=== PATIENT | male | born 1990 | race Hispanic/Latino ===

== ENCOUNTER 2017-04-01 16:46 | Emergency (ER) | payer MEDICAID ==
[2017-04-01 16:53] VITALS: RESP 18; O2SAT 98
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
--- NOTE | 2017-04-01 18:50 | CT ---
PROCEDURE: CT HEAD WITHOUT CONTRAST. HISTORY: Head injury 1 year ago, headache with vision loss COMPARISON: Images from noncontrast head CT performed 10/11/11 TECHNIQUE: Axial computed tomography images were obtained through the head/brain without intravenous contrast. Radiation dose: Total exam DLP = not available This CT exam was performed using one or more of the following dose reduction techniques: Automated exposure control, adjustment of the mA and/or kV according to patient size, and/or use of iterative reconstruction technique. FINDINGS: HEMORRHAGE: No intracranial hemorrhage. BRAIN: No mass effect or edema. No atrophy or chronic microvascular ischemic changes.Please note that MRI with diffusion imaging is more sensitive in the detection of acute ischemic event. VENTRICLES: No hydrocephalus. CALVARIUM: Unremarkable. PARANASAL SINUSES: Unremarkable as visualized. No significant inflammatory changes. MASTOID AIR CELLS: Unremarkable as visualized. No inflammatory changes. OTHER FINDINGS: None. IMPRESSION: No acute intracranial pathology identified.
[2017-04-01 19:20] VITALS: BP 105/53; PULSE 66; TEMP 97.9
== END 2017-04-01 19:25 | disposition home or self-care (01) ==
LOC: C.ER 16:46
DX: F07.81 Postconcussional syndrome (principal); G44.309 Post-traumatic headache, unspecified, not intractable

== ENCOUNTER 2017-05-03 02:59 | Emergency (ER) | payer MEDICAID ==
[2017-05-03 03:08] VITALS: TEMP 98; O2SAT 99
[2017-05-03] MEDS ORDERED: Amoxicillin-Clav 875-125 mg Tab PO STA (04:02)
[2017-05-03] MEDS ORDERED: Oxycodone/Acetaminophen 5/325 mg Tab PO STA (04:03)
--- NOTE | 2017-05-03 04:09 | C.PDOC ---
History Of Present Illness 26 year old male who presents to the ER with a complaint of a headache and bleeding from the left ear since yesterday. Patient was seen on 04/01/17 for a complaint of a headache, at the time he had a head CT done that was negative. Patient reports he washed out his left ear with alcohol to clean the blood; denies rash, throat pain, or vomiting. Time Seen by Provider: 05/03/17 03:15 Chief Complaint (Nursing): Headache History Per: Patient History/Exam Limitations: no limitations Onset/Duration Of Symptoms: Days Current Symptoms Are (Timing): Still Present Preceeding Symptoms: None Associated Symptoms: denies: Nausea, Vomiting Recent travel outside of the [place]: No Past Medical History Reviewed: Historical Data, Nursing Documentation, Vital Signs Vital Signs: Last Vital Signs Temp 98 F 05/03/17 03:06 Pulse 100 H 05/03/17 03:06 Resp 20 05/03/17 03:06 BP 138/80 05/03/17 03:06 Pulse Ox 99 05/03/17 04:17 - Medical History PMH: Asthma, Migraine Surgical History: No Surg Hx Family History: States: Unknown Family Hx - Social History Hx Tobacco Use: Yes Hx Alcohol Use: No Hx Substance Use: No - Immunization History Hx Tetanus Toxoid Vaccination: No Hx Influenza Vaccination: No Hx Pneumococcal Vaccination: No Review Of Systems ENT: Positive for: Ear Pain. Negative for: Throat Pain Gastrointestinal: Negative for: Vomiting Skin: Negative for: Rash Neurological: Positive for: Headache Physical Exam - Physical Exam Appears: Non-toxic, No Acute Distress Skin: Normal Color, Warm, Dry Head: Atraumatic, Normacephalic Ear(s): Left: Other (Blood in ear canal. Pain with pulling on pinna), Right: Normal Oral Mucosa: Moist Throat: Normal, No Erythema, No Exudate Neck: Normal, Supple Neurological/Psych: Oriented x3, Normal Speech, Normal Cognition ED Course And Treatment O2 Sat by Pulse Oximetry: 99 (Room air) Pulse Ox Interpretation: Normal Medical Decision Making Medical Decision Making: Plan: * Amoxicillin * Percocet Prior records reviewed, patient was seen on 04/01/[address] Coles for a complaint of headache and blurred vision. Disposition - Disposition Referrals: Heron Scanlon MD [Staff Provider] - Disposition: HOME/ ROUTINE Disposition Time: 05:20 Condition: GOOD Additional Instructions: Follow up with the ENT doctor within 1-2 days, Return if worsened. Prescriptions: Amoxicillin/Clavulanate [Augmentin 875 MG-125 MG] 1 tab PO BID #14 tab traMADol [Ultram] 50 mg PO Q6 PRN #20 tab PRN Reason: Pain Instructions: Otitis Externa (ED), Ruptured Eardrum (ED) Forms: [facility] (Mozambican) - Clinical Impression Clinical Impression: Otitis externa - Scribe Statement The provider has reviewed the documentation as recorded by the Scribzack Jim All medical record entries made by the Jaminibzack were at my direction and personally dictated by me. I have reviewed the chart and agree that the record accurately reflects my personal performance of the history, physical exam, medical decision making, and the department course for this patient. I have also personally directed, reviewed, and agree with the discharge instructions and disposition.
[2017-05-03] MEDS ORDERED: Oxycodone/Acetaminophen 5/325 mg Tab ONE (04:20)
[2017-05-03] MEDS ORDERED: Amoxicillin-Clav 875-125 mg Tab PO ONE (04:20)
[2017-05-03 05:27] VITALS: BP 120/80; PULSE 80; RESP 14
== END 2017-05-03 05:27 | disposition home or self-care (01) ==
LOC: C.ER 02:59
DX: H60.92 Unspecified otitis externa, left ear (principal)

== ENCOUNTER 2017-09-17 19:08 | Emergency (ER) | payer MEDICAID ==
[2017-09-17 19:57] VITALS: BP 120/70; PULSE 80; TEMP 98; O2SAT 96
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
[2017-09-17 21:32] VITALS: RESP 20
--- NOTE | 2017-09-18 08:24 | RAD ---
PROCEDURE: Revision left knee dated 09/17/2017. HISTORY: Pain. COMPARISON: None. FINDINGS: BONES: Current study reveals no evidence of acute displaced fracture nor dislocation. The osseous structures intact. Joint spaces preserved. JOINTS: Joint effusion Joint spaces preserved. No significant osteoarthritis. JOINT EFFUSION: No significant OTHER FINDINGS: None. IMPRESSION: No evidence of acute displaced fracture nor dislocation. If symptoms persist or occult fracture suspected clinically consider CT scan if further evaluation is required.
== END 2017-09-17 21:32 | disposition home or self-care (01) ==
LOC: C.ER 19:08
DX: S80.02XA Contusion of left knee, initial encounter (principal); V09.3XXA Pedestrian injured in unspecified traffic accident, initial encounter

== ENCOUNTER 2017-12-16 01:04 | Emergency (ER) | payer MEDICAID ==
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
[2017-12-16] MEDS ORDERED: Sodium Chloride 0.9% 1,000 ML IV ONE (02:05)
[2017-12-16] MEDS ORDERED: Sodium Chloride 0.9% 1,000 ML ONE (02:10)
[2017-12-16 03:10] VITALS: BP 120/71; PULSE 67; RESP 18; TEMP 98.2
[2017-12-19 17:49] VITALS: O2SAT 99
== END 2017-12-16 03:12 | disposition home or self-care (01) ==
LOC: C.ER 01:04
DX: R51 Headache (principal); Z72.0 Tobacco use
CPT/HCPCS: 96361; 96374; 99285; J2765; J7040

== ENCOUNTER 2018-04-16 19:12 | Emergency (ER) | payer MEDICAID ==
[2018-04-16 20:01] LABS: BASO # 0.1 K/uL (0.0-0.2); BASO % 0.7 % (0.0-2.0); EOS # 0.1 K/uL (0.0-0.7); EOS % 1.2 % (0.0-4.0); HEMOGLOBIN 14.4 g/dL (12.0-18.0); LYMPH # 2.4 K/uL (1.0-4.3); LYMPH % 26.6 % (20.0-40.0); MEAN CELL VOLUME 83.7 fL (80.0-94.0); MEAN CORPUSCULAR HEMOGLOBIN 29.5 pg (27.0-31.0); MEAN CORPUSCULAR HGB CONC 35.3 g/dL (33.0-37.0); MEAN PLATELET VOLUME 7.4 fL (7.2-11.7); MONO # 0.7 K/uL (0.0-0.8); MONO % 8.1 % (0.0-10.0); NEUT # 5.7 K/uL (1.8-7.0); NEUT % 63.4 % (50.0-75.0); RBC 4.88 Mil/uL (4.40-5.90); RED CELL DISTRIBUTION WIDTH 12.8 % (11.5-14.5)
--- NOTE | 2018-04-16 20:08 | C.PDOC ---
History Of Present Illness 27 year old male presents to the ER with a complaint of suicidal thoughts without specific plan. Patient admits he has been feeling increasingly more depressed recently. Currently, patient has no physical complaints. Time Seen by Provider: 04/16/18 19:20 Chief Complaint (Nursing): Psychiatric Evaluation History Per: Patient History/Exam Limitations: no limitations Current Symptoms Are (Timing): Still Present Modifying Factor(s): Narcotics Severity: Moderate Associated Symptoms: Depression, Suicidal Thoughts Recent travel outside of the [place]: No Past Medical History Reviewed: Historical Data, Nursing Documentation, Vital Signs Vital Signs: Last Vital Signs Temp 98.2 F 04/16/18 21:28 Pulse 82 04/16/18 21:28 Resp 20 04/16/18 21:28 BP 117/69 04/16/18 21:28 Pulse Ox 99 04/16/18 21:28 - Medical History PMH: Asthma, Depression, Migraine Family History: States: No Known Family Hx - Social History Hx Tobacco Use: Yes Hx Alcohol Use: No Hx Substance Use: No - Immunization History Hx Tetanus Toxoid Vaccination: No Hx Influenza Vaccination: No Hx Pneumococcal Vaccination: No Review Of Systems Constitutional: Negative for: Fever, Chills Cardiovascular: Negative for: Chest Pain, Palpitations Respiratory: Negative for: Shortness of Breath Gastrointestinal: Negative for: Nausea, Vomiting, Abdominal Pain, Diarrhea Psych: Positive for: Depression, Suicidal ideation, Other (heroin dependence ) Physical Exam - Physical Exam Appears: Well, Non-toxic, Other (Flat affect) Skin: Warm, Dry Head: Atraumatic, Normacephalic Eye(s): bilateral: Normal Inspection Oral Mucosa: Moist Cardiovascular: Rhythm Regular Respiratory: Normal Breath Sounds, No Rales, No Rhonchi, No Wheezing Gastrointestinal/Abdominal: Normal Exam, Bowel Sounds, Soft, No Tenderness Extremity: Other (Left hand dorsal aspect superficial abrasion/cut, no bleeding) Neurological/Psych: Oriented x3 Gait: Steady ED Course And Treatment - Laboratory Results Result Diagrams: 04/16/18 19:57 04/16/18 19:57 O2 Sat by Pulse Oximetry: 98 (Room air) Pulse Ox Interpretation: Normal Progress Note: Blood work, UA, UDS ordered and reviewed. Patient to be seen by crisis counselor. Reevaluation Time: 21:20 Reassessment Condition: Improved (Patient has been evaluated by crisis counselor , who discussed patient with vision care associate psychiatrist Dr. Leon. Patient has been cleared for discharge from psychiatric standpoint. He was instructed to follow up with [facility] and [facility], and understands he should return to ED if he has any concerning symptoms.) Disposition Counseled Patient/Family Regarding: Studies Performed, Diagnosis, Need For Followup - Disposition Referrals: [facility] [Outside] [place] [facility] [Outside] Disposition: HOME/ ROUTINE Disposition Time: 21:20 Condition: STABLE Additional Instructions: FOLLOW UP [facility] SCHEDULED RETURN TO ER IF YOU HAVE ANY CONCERNING SYMPTOMS Instructions: Depression, Adult (DC) Forms: [facility] (Slovak) Print Language: FAROESE - POA Present On Arrival: None - Clinical Impression Clinical Impression: Major depression - Scribe Statement The provider has reviewed the documentation as recorded by the Scribzack Jim All medical record entries made by the Jaminibzack were at my direction and personally dictated by me. I have reviewed the chart and agree that the record accurately reflects my personal performance of the history, physical exam, medical decision making, and the department course for this patient. I have also personally directed, reviewed, and agree with the discharge instructions and disposition.
[2018-04-16 20:19] LABS: ALB/GLOB RATIO 1.6 (1.0-2.1); ALBUMIN 4.6 g/dL (3.5-5.0); ALT/SGPT 19 U/L (21-72); AST/SGOT 26 U/L (17-59); BLOOD UREA NITROGEN 7 mg/dL (9-20); CALCIUM 9.1 mg/dl (8.6-10.4); GFR AFRICAN-AMERICAN > 60; GFR NON-AFRICAN AMERICAN > 60
[2018-04-16 21:28] VITALS: BP 117/69; PULSE 82; RESP 20; TEMP 98.2
[2018-04-18 01:55] VITALS: O2SAT 98
== END 2018-04-16 21:41 | disposition home or self-care (01) ==
LOC: C.ER 19:12
DX: F32.9 Major depressive disorder, single episode, unspecified (principal)